=== PATIENT | male | born 1940 | race Caucasian/White ===

== ENCOUNTER 2016-10-03 19:01 | Emergency (ER) | payer OTHER ==
[~2016-10-03] VITALS: Ht 172.7 cm; Wt 81.1 kg
[2016-10-03 19:05] VITALS: BP 143/82; PULSE 76; RESP 20; TEMP 97.8; O2SAT 96
[2016-10-03] MEDS ORDERED: AMLO10TA2 PO (19:22)
[2016-10-03] MEDS ORDERED: SYNT25TA PO (19:22)
[2016-10-03] MEDS ORDERED: TRIA37.53 PO (19:23)
[2016-10-03] MEDS ORDERED: LOSA100T PO (19:23)
[2016-10-03] MEDS ORDERED: ROSU10 PO (19:24)
[2016-10-03] MEDS ORDERED: OXYB5TAB10 PO (19:24)
[2016-10-03] MEDS ORDERED: DETR4CAP PO (19:25)
[2016-10-03] MEDS ORDERED: NIAS1000 PO (19:25)
[2016-10-03] MEDS ORDERED: PLAV75TA29 PO (19:25)
--- NOTE | 2016-10-03 19:25 | PD ---
HPI Chief Complaint: Injury Time Seen by Provider: 19:11 Travel History International Travel<30 days: No Contact w/Intl Traveler<30days: No Traveled to known affect area: No History of Present Illness HPI Is a 76 showed woman presents emergent department complaining of right arm pain. Patient with trip and fall on his right outstretched arm. Denies hitting his head. He is a history of previous cerebellar bleed and has frequent falls. He is visiting from out of town. Denies hitting his head. Has otherwise been feeling generally well. Fell about one to 2 hours prior to arrival. History Past Medical History Narrative Medical Cerebellar bleed many years ago CVA, on Plavix Diabetes, on insulin pump Hypertension Hypothyroidism Hyperlipidemia Tetanus Vaccination: < 5 Years Influenza Vaccination: Yes Social History Alcohol Use: No Tobacco Use: No Allergies-Medications (Allergen,Severity, Reaction): Coded Allergies: Penicillin (Verified Allergy, Unknown, swelling, 10/03/16) Sulfa (Verified Allergy, Unknown, swelling, 10/03/16) Reported Meds & Prescriptions Reported Meds & Active Scripts Active Reported [Insulin Pump] Unknown Dose SQ CONTINUOUS Plavix (Clopidogrel Bisulfate) 75 Mg Tab 75 Mg PO DAILY Niaspan (Niacin ER) 1,000 Mg Tab 1,000 Mg PO HS Detrol LA (Tolterodine Tartrate) 4 Mg Cap 4 Mg PO DAILY Crestor (Rosuvastatin Calcium) 10 Mg Tab 10 Mg PO DAILY Ditropan (Oxybutynin Chloride) 5 Mg Tab 5 Mg PO DAILY Triamterene-Hydrochlorothiazide 37.5-25 Mg Cap 1 Cap PO DAILY Losartan (Losartan Potassium) 100 Mg Tab 100 Mg PO DAILY Synthroid (Levothyroxine Sodium) 25 Mcg Tab 25 Mcg PO DAILY Amlodipine (Amlodipine Besylate) 10 Mg Tab 10 Mg PO DAILY Review of Systems Except as stated in HPI: all other systems reviewed are Neg Physical Exam Narrative GENERAL: Well-appearing 76-year-old man, no acute distress. Doesn't little bit of infraorbital bruising from previous fall couple weeks ago. SKIN: Warm and dry. CARDIOVASCULAR: Warm and well perfused. RESPIRATORY: Normal rate and effort. MUSCULOSKELETAL: Focus examination the right upper shoulder reveals a little bit dorsal swelling and deformity to the right wrist. Swelling is centered around the distal radius. He has preserved range of motion of the wrist and hand. Distal hand is neurovascularly intact. NEUROLOGICAL: Awake and alert. No gross deficits. Data Data Last Documented VS Vital Signs Date Time Temp Pulse Resp B/P Pulse Ox O2 Delivery O2 Flow Rate FiO2 10/03/16 19:05 97.8 76 20 143/82 96 Orders Wrist, Complete ([id number]) (10/03/16 ) [facility] Medical Decision Making Medical Screen Exam Complete: Yes Emergency Medical Condition: Yes Interpretation(s) X-ray right wrist: Chronic appearing changes including widening of the scapholunate interval, chronic remodeling of the distal radius, thinning of the radiocarpal joint between the radius and scaphoid, degenerative changes with joint space narrowing with subchondral sclerosis at the first MCP joint. Differential Diagnosis Distal radius fracture, contusion, ulnar fracture, dislocation, other Narrative Course Medical decision making INITIAL: 76-year-old man presents emergency Department with fall on his outstretched right hand and apparent distal radius fracture. We'll check x-ray , reassess. He's visiting from out of town. Frequent falls. FINAL: X-ray with no definite acute findings. There is widening of the scapholunate interval of unclear chronicity. Patient is visiting from out of town. We'll recommend splinting, repeat x-rays in 1 week or sooner as a return home. Diagnosis Primary Impression: Right wrist injury Additional Instructions: Wear splint until he follow up with your primary doctor. Repeat x-rays in 1 week or when you return home. Take Tylenol as needed for pain. Take tramadol in addition to Tylenol as needed for severe pain. Use caution as it can cause drowsiness, constipation, and unsteadiness. Med/Other Pt SpecificInfo: Prescription(s) given Scripts Tramadol 50 Mg Tab50 Mg PO Q8H PRN (PAIN) #15 TAB Ref 0 Prov:Rashawn Falcon MD 10/03/16 Disposition: 01 DISCHARGE HOME Condition: Stable Rashawn Falcon MD Oct 03, 2016 19:25
[2016-10-03] MEDS ORDERED: Insulin Pump SQ (19:40)
--- NOTE | 2016-10-03 20:14 | RADRPT ---
EXAM DATE/TIME: 10/03/2016 19:37 [facility] COMPARISON: No previous studies available for comparison. INDICATIONS : Patient fell this morning on right wrist. MEDICAL HISTORY : Stroke. SURGICAL HISTORY : None. ENCOUNTER: Initial ACUITY: 1 day PAIN SCORE: 2/10 LOCATION: Right Wrist. FINDINGS: An acute fracture is not seen. There is some widening scapholunate interval. There is some chronic re modeling at the distal radius. There is thinning of the radiocarpal joint between the radius and scap hoid. There is degenerative change with joint space narrowing and subchondral sclerosis at the first MCP joint. Vascular calcifications are seen. CONCLUSION: Chronic-appearing changes as described above. Serge Dwyer MD on October 03, 2016 at 20:09 Board Certified Radiologist. This report was verified electronically.
[2016-10-03] MEDS ORDERED: TRAM50TA PO (20:26)
[2016-10-03] MEDS ORDERED: ACETAMINOPHEN 500 MG CPLT PO ONE (20:30)
== END 2016-10-03 20:57 | disposition home or self-care (01) ==
LOC: PHEFT 19:01
DX: S69.91XA Unspecified injury of right wrist, hand and finger(s), initial encounter (principal); E11.9 Type 2 diabetes mellitus without complications; E03.9 Hypothyroidism, unspecified; E78.5 Hyperlipidemia, unspecified; I10 Essential (primary) hypertension; Z79.4 Long term (current) use of insulin; Z86.73 Personal history of transient ischemic attack (TIA), and cerebral infarction without residual deficits; Z79.01 Long term (current) use of anticoagulants; W18.30XD Fall on same level, unspecified, subsequent encounter; Y93.9 Activity, unspecified; Y92.9 Unspecified place or not applicable; Y99.9 Unspecified external cause status
CPT/HCPCS: 73110; 99283; L3908